=== PATIENT | female | born 1955 | race Caucasian/White ===

== ENCOUNTER → 2023-12-14 08:19 | Outpatient (REF) | payer MEDICARE, BC, SELFPAY | LOC: HWWDC 08:19 | PROVIDERS: ATTENDING PHYSICIAN Obstetrics & Gynecology Gynecology; FAMILY PHYSICIAN Family Medicine | DX: Z12.31 Encounter for screening mammogram for malignant neoplasm of breast (principal) | CPT/HCPCS: 77063; 77067 ==

== ENCOUNTER → 2024-12-31 11:15 | Outpatient (REF) | payer MEDICARE, BC, SELFPAY ==
[2025-01-01 00:53] LABS: IgA 210 mg/dl (70-400); IgG 844 mg/dl (700-1600); IgM 68 mg/dl (40-230)
[2025-01-02 22:11] LABS: IgG Subclass 1 393 mg/dL (240-1118); IgG Subclass 2 216 mg/dL (124-549); IgG Subclass 3 60 mg/dL (21-134); IgG Subclass 4 85 mg/dL (1-123)
== END ==
LOC: HWLAB 11:15
PROVIDERS: ATTENDING PHYSICIAN Internal Medicine Critical Care Medicine; FAMILY PHYSICIAN Family Medicine
DX: J47.9 Bronchiectasis, uncomplicated (principal)
CPT/HCPCS: 36415; 82784; 82787

== ENCOUNTER → 2025-01-12 08:12 | Outpatient (REF) | payer MEDICARE, BC, SELFPAY | LOC: HWWDC 08:12 | PROVIDERS: ATTENDING PHYSICIAN Obstetrics & Gynecology Gynecology; FAMILY PHYSICIAN Family Medicine | DX: Z12.39 Encounter for other screening for malignant neoplasm of breast (principal) | CPT/HCPCS: 77063; 77067 ==

== ENCOUNTER → 2025-01-15 07:43 | Outpatient (REF) | payer MEDICARE, BC, SELFPAY | LOC: HWRAD 07:43 | PROVIDERS: ATTENDING PHYSICIAN Internal Medicine Critical Care Medicine; FAMILY PHYSICIAN Family Medicine | DX: J47.9 Bronchiectasis, uncomplicated (principal); R91.1 Solitary pulmonary nodule | CPT/HCPCS: 71250 ==